=== PATIENT | male | born 1940 | race Caucasian/White ===

== ENCOUNTER 2022-09-22 16:21 | Inpatient (IN) | payer MEDICARE ==
[~2022-09-22] VITALS: Ht 174 cm; Wt 61.2 kg
--- NOTE | 2022-09-22 17:10 | NUR ---
BIB SON FOR NOTED, PALOR, COOL CLAMMY SKIN WHILE EATING AT AROUND 1500 HYPERTENSIVE ON TRIAGE
[2022-09-22 18:01] LABS: BASOPHILS % (AUTO) 0.4 % (0.0-2.0); HEMATOCRIT 41 % (39-51); HEMOGLOBIN 13.6 g/dL (13.5-17.5); LYMPHOCYTES # (AUTO) 0.9 K/uL (0.8-4.8); LYMPHOCYTES % (AUTO) 11.3 % (20.0-44.0); MEAN CORPUSCULAR HGB CONC 33 g/dl (31.0-36.0); MEAN CORPUSCULAR VOLUME 94 fL (80-96); MONOCYTES # (AUTO) 0.3 K/uL (0.1-1.30); MONOCYTES % (AUTO) 3.6 % (2.0-12.0); NEUTROPHILS # (AUTO) 6.9 K/uL (1.8-8.9); NEUTROPHILS % (AUTO) 83.7 % (43.0-81.0); PLATELET COUNT (AUTO) 253 K/uL (150-450); RED BLOOD CELL COUNT(AUTO) 4.38 MIL/uL (4.5-6.0); WHITE BLOOD COUNT (AUTO) 8.2 K/uL (4.3-11.0)
[2022-09-22 18:24] LABS: CALCIUM, SERUM 8.7 mg/dL (8.5-10.1); CARBON DIOXIDE 26 mmol/L (21-32); CHLORIDE 105 mmol/L (98-107); CREATININE 1.9 mg/dL (0.6-1.3); GLUCOSE 116 mg/dL (74-106); POTASSIUM 3.9 mmol/L (3.5-5.1); SODIUM SERUM 140 mmol/L (136-145); UREA NITROGEN, BLOOD 30 mg/dL (7-18)
[2022-09-22 18:39] LABS: ALANINE AMINOTRANSFERASE 18 U/L (12-78); ALBUMIN 3.7 g/dL (3.4-5.0); ALKALINE PHOSPHATASE 148 U/L (46-116); ASPARTATE AMINOTRANSFERASE 26 U/L (15-37); BILIRUBIN,DIRECT 0.1 mg/dL (0.0-0.2); BILIRUBIN,TOTAL 0.4 mg/dL (0.2-1.0); TOTAL PROTEIN, SERUM 7.2 g/dL (6.4-8.2)
[2022-09-22] MEDS ORDERED: ACETAMINOPHEN 325 MG TABLET ONE (18:47)
[2022-09-22] MEDS ORDERED: ASPIRIN 325 MG TABLET ONE (18:49)
--- NOTE | 2022-09-22 18:49 | NUR ---
covid swab taken
[2022-09-22] MEDS ORDERED: ASPIRIN 325 MG TABLET PO ONE (19:00)
[2022-09-22] MEDS ORDERED: ENOXAPARIN SODIUM 40 MG/0.4 ML DISP.SYRIN SQ ONE (19:21)
[2022-09-22] MEDS ORDERED: LABETALOL HCL (100MG) 100 MG TABLET PO ONE (19:30)
[2022-09-22] MEDS ORDERED: ENOXAPARIN SODIUM 60 MG/0.6 ML DISP.SYRIN SQ ONE (19:30)
[2022-09-22] MEDS ORDERED: ACETAMINOPHEN 325 MG TABLET PO PRN (20:30)
[2022-09-22] MEDS ORDERED: MAG HYDROX/AL HYDROX/SIMETH 30 ML UDC PO PRN (20:30)
[2022-09-22] MEDS ORDERED: LABETALOL 20 MG/4 ML VIAL IV PRN (20:30)
[2022-09-22] MEDS ORDERED: MAGNESIUM HYDROXIDE 30 ML UDC PO PRN (20:30)
[2022-09-22] MEDS ORDERED: Z GUARD REMEDY 4 OZ OINT TP PRN (20:30)
[2022-09-22] MEDS ORDERED: ONDANSETRON HCL/PF 4 MG/2 ML VIAL IVP PRN (20:30)
--- NOTE | 2022-09-22 20:51 | NUR ---
REPORT GIVEN TO KADY Leiva RN FOR ELIDA
--- NOTE | 2022-09-22 21:30 | NUR ---
PT TRANSFERRED TO 3W 323-1 VIA ACLS PROTOCOL IN STABLE CONDITION. VSS. ALL BELONGINGS WITH PT.
--- NOTE | 2022-09-22 21:40 | NUR ---
sane rn notes Received Pt from ER nurse. Pt is alert and orientedX4. On room air. No SOB. No S/S of distress noted. Pt denies any pain at this time. Tele monitor showed SR. IV site at LAC# 20 is clean, intact and flushes well. Skis assesment is done and performed. Skin pictures are taken. Pt's belonging was given to Pt's son and signed by Pt. Reorient Pt to the room and the use of call light. Pt verbalize understanding. Safety precautions is maintained. Bed at low position, brakes locked, side rails upX2, urinal at the bedside, hob elevated, bed alarm is on and call light is within reach. Will continue to monitor.
[2022-09-22 22:00] VITALS: BP 200/94
[2022-09-22] MEDS: hydrALAZINE HCL IV 20 MG VIAL IV PRN (22:33)
--- NOTE | 2022-09-22 22:33 | NUR ---
RN notes Pt's BP 200/94, HR 65. administered hydralazine 10mg/iv/prn as ordered for high BP. No S/S of distress noted. Pt denies any discomfort. Will continue to monitor.
[2022-09-22 23:30] VITALS: BP 154/77
--- NOTE | 2022-09-22 23:30 | NUR ---
RN notes Pt's BP 154/77, HR 71. tele monitor showed SR. Will continue to monitor.
--- NOTE | 2022-09-23 00:26 | NUR ---
RN notes Called radiology two times for US kidney. No one answered the phone. Will try again.
--- NOTE | 2022-09-23 02:24 | NUR ---
RN notes Received a phone call from Donn narvaez. Critical lab for troponin I [phone]. Informed and notified Dr. Valdez. Awaiting for response.
--- NOTE | 2022-09-23 02:40 | NUR ---
RN notes Received ordered from Dr. Valdez for heparin gtts non - ACS. also informed MD that Pt's BP midnight was 154/77 HR 71. Pt denies any chest pain or discomfort. Order carried out. Charge nurse is aware and informed.
--- NOTE | 2022-09-23 02:41 | NUR ---
RN notes ordered to DC lovenox. Ordered carried out
[2022-09-23 03:11] LABS: BILIRUBIN,URINE NEGATIVE (NEGATIVE); COLOR,URINE YELLOW (YELLOW); LEUKOCYTE ESTERASE ,URINE NEGATIVE (NEGATIVE); NITRITE, URINE NEGATIVE (NEGATIVE); PROTEIN,URINE 1+ mg/dl (NEGATIVE); UGLUCOSE NEGATIVE (NEGATIVE); UROBILINOGEN,URINE 0.2 EU/dL (0.2)
[2022-09-23 03:15] LABS: BACTERIA,URINE None seen /HPF (None Seen); SQUAMOUS EPITHELIAL CELL,UR Few /HPF (None Seen); WBC,URINE 0-2 /HPF (0-3)
--- NOTE | 2022-09-23 03:18 | NUR ---
RN notes Send to [facility] regarding heparin dosing orders non ACS. called house supDariusz Hair for heparin ordered. Charge nurse is aware and informed.
--- NOTE | 2022-09-23 03:43 | NUR ---
Rn notes Received a phone call from [facility] Brenda. Brenda informed to verify with MD regarding heparin drips. Pt received therapeutic lovenox 60 mg in ER. Pharmacy informed to start heparin drips 9-12 hours after lovenox and regarding the bolus. Dr. Valdez is aware and informed. MD ordered to DC heparin gtts and keep Pt on therapeutic lovenox/BID. order carried out. charge nurse is aware and informed.
[2022-09-23 04:00] VITALS: BP 146/59
--- NOTE | 2022-09-23 04:01 | NUR ---
RN notes Called [facility] and spoke with Brenda. Informed Brenda that Dr. Valdez ordered to DC heparin and continue to therapeutic lovenox. Charge nurse is aware and informed.
[2022-09-23] MEDS ORDERED: HEPARIN INFUSION/D5W 500 ML IV PRN (04:30)
[2022-09-23 06:02] LABS: BASOPHILS % (AUTO) 0.4 % (0.0-2.0); EOSINOPHILS % (AUTO) 2.6 % (0.0-6.0); HEMATOCRIT 38 % (39-51); HEMOGLOBIN 12.8 g/dL (13.5-17.5); LYMPHOCYTES # (AUTO) 1.7 K/uL (0.8-4.8); LYMPHOCYTES % (AUTO) 24.6 % (20.0-44.0); MEAN CORPUSCULAR HGB CONC 34 g/dl (31.0-36.0); MEAN CORPUSCULAR VOLUME 94 fL (80-96); MONOCYTES # (AUTO) 0.4 K/uL (0.1-1.30); MONOCYTES % (AUTO) 5.7 % (2.0-12.0); NEUTROPHILS # (AUTO) 4.6 K/uL (1.8-8.9); NEUTROPHILS % (AUTO) 66.7 % (43.0-81.0); PLATELET COUNT (AUTO) 241 K/uL (150-450); RED BLOOD CELL COUNT(AUTO) 4.08 MIL/uL (4.5-6.0); WHITE BLOOD COUNT (AUTO) 6.8 K/uL (4.3-11.0)
[2022-09-23 06:21] LABS: CALCIUM, SERUM 8.8 mg/dL (8.5-10.1); CARBON DIOXIDE 24 mmol/L (21-32); CHLORIDE 107 mmol/L (98-107); CREATININE 1.6 mg/dL (0.6-1.3); GLUCOSE 108 mg/dL (74-106); MAGNESIUM 2.3 mg/dL (1.8-2.4); PHOSPHORUS 3.1 mg/dL (2.5-4.9); POTASSIUM 3.6 mmol/L (3.5-5.1); SODIUM SERUM 141 mmol/L (136-145); UREA NITROGEN, BLOOD 28 mg/dL (7-18)
--- NOTE | 2022-09-23 06:35 | NUR ---
RN closing notes Pt is resting in bed comfortably. Pt is alert and orientedX4. On room air. No SOB. No S/S of distress noted. VS is stable. afebrile. Tele monitor showed SR with bigeminy HR at 71. IV site at LAC# 20 is clean, intact and SL. Kept Pt clean, dry and comfortable. Safety precautions is maintained. Bed at low position, brakes locked, side rails upX2, urinal at the bedside, hob elevated, bed alarm is on and call light is within reach. Will endorse to am nurse for ELIDA.
--- NOTE | 2022-09-23 06:46 | NUR ---
RN notes Called lab to draw troponin.
--- NOTE | 2022-09-23 07:00 | NUR ---
CREDIT OFFICE MANAGER OPENING NOTES Received patient in bed alert, awake and oriented. A/O x 4. Patient on room air, no signs of respiratory distress. IV site at LAC #20 in saline lock, patent and intact. Safety measures given with bed on low position and locked. Side rails up x2. Call light within reach at all times. Will continue with the plan of care.
[2022-09-23 08:00] VITALS: BP 164/82
[2022-09-23] MEDS: ASPIRIN 81 MG TAB.CHEW PO SCH (08:19)
--- NOTE | 2022-09-23 08:22 | NUR ---
SISAL PICKER/MED RECON PATIENT AOX3. ABLE TO MAKE NEEDS KNOWN. PATIENT REPORTED NO HOME MEDICATION. REPORTED TAKING NORVASC 10MG 1 TAB DAILY 5-[address] JEAN MADE AWARE WITH NO NEW ORDER.
--- NOTE | 2022-09-23 08:40 | NUR ---
SHELL CORE AND MOLDING SUPERVISOR NOTE SEEN BY DR. JEAN
[2022-09-23 09:31] LABS: THYROID STIMULATING HORMONE 3.596 uIU/mL (0.358-3.74)
[2022-09-23] MEDS: ATORVASTATIN 10 MG TABLET PO SCH (09:31)
[2022-09-23 12:00] VITALS: BP 171/86
[2022-09-23 16:00] VITALS: BP 170/78
[2022-09-23] MEDS: IV NS 0.9% 1,000 ML IV PRN ×2 (18:09→18:29)
[2022-09-23] MEDS: AMLODIPINE BESYLATE 10 MG TABLET PO SCH (18:09)
[2022-09-23] MEDS: ENOXAPARIN SODIUM 60 MG/0.6 ML DISP.SYRIN SQ SCH (18:10)
--- NOTE | 2022-09-23 19:10 | NUR ---
RN OPENING NOTES; Received PT in bed AA/O x 4.able to make needs known,julia well on rm air,No sign sob/distress noted,No complain of pain/discomfort at this time,IV site at LAC #20 in saline lock, patent and intact. Safety measures given with bed on low position and locked. Side rails up x2. Call light within reach at all times. Will continue to monitor.
--- NOTE | 2022-09-23 19:10 | NUR ---
ABDOUL RN OPENING NOTES Received PT in bed AA/O x 4.able to make needs known,julia well on rm air,No sign sob/distress noted,No complain of pain/discomfort at this time,IV site at LAC #20 in saline lock, patent and intact. Safety measures given with bed on low position and locked. Side rails up x2. Call light within reach at all times. Will continue to monitor. Addendum: 09/23/22 at 1950 by CAROLYNE FISHER RN wrong entry
--- NOTE | 2022-09-23 19:20 | NUR ---
TRAIN ATTENDANT CLOSING NOTES Patient in bed alert, awake and oriented. A/O x 4. Patient on room air, no signs of respiratory distress. IV site at LAC #20 NS running 100ml/hr, infusing well. On telemetry, SR 80 bigeminy and trigeminy with PVC. Safety measures given with bed on low position and locked. Side rails up x2. Call light within reach at all times. Will endorse to the next shift for the continuity of care.
[2022-09-23 20:00] VITALS: BP 189/87
[2022-09-24] MEDS: IV NS 0.9% 1,000 ML IV PRN ×2 (05:22→18:29)
[2022-09-24 06:00] LABS: BASOPHILS % (AUTO) 0.5 % (0.0-2.0); EOSINOPHILS % (AUTO) 4.7 % (0.0-6.0); HEMATOCRIT 37 % (39-51); HEMOGLOBIN 12.5 g/dL (13.5-17.5); LYMPHOCYTES # (AUTO) 1.9 K/uL (0.8-4.8); LYMPHOCYTES % (AUTO) 31.4 % (20.0-44.0); MEAN CORPUSCULAR HGB CONC 34 g/dl (31.0-36.0); MEAN CORPUSCULAR VOLUME 93 fL (80-96); MONOCYTES # (AUTO) 0.3 K/uL (0.1-1.30); MONOCYTES % (AUTO) 5.5 % (2.0-12.0); NEUTROPHILS # (AUTO) 3.4 K/uL (1.8-8.9); NEUTROPHILS % (AUTO) 57.9 % (43.0-81.0); PLATELET COUNT (AUTO) 226 K/uL (150-450); RED BLOOD CELL COUNT(AUTO) 3.97 MIL/uL (4.5-6.0); WHITE BLOOD COUNT (AUTO) 5.9 K/uL (4.3-11.0)
--- NOTE | 2022-09-24 06:17 | NUR ---
RN CLOSING NOTES; PT in bed AA/O x 4.able to make needs known,julia well on rm air,No sign sob/distress noted,No complained of pain/discomfort during shift,due meds given as order,all needs attended,IV site at [facility] #20 running NS 100ml/hr. Safety measures given with bed on low position and locked. Side rails up x2. Call light within reach at all times. Will endorsed to next shift.
[2022-09-24 06:19] LABS: ALANINE AMINOTRANSFERASE 15 U/L (12-78); ALKALINE PHOSPHATASE 121 U/L (46-116); ASPARTATE AMINOTRANSFERASE 25 U/L (15-37); BILIRUBIN,TOTAL 0.6 mg/dL (0.2-1.0); CALCIUM, SERUM 8.1 mg/dL (8.5-10.1); CARBON DIOXIDE 25 mmol/L (21-32); CHLORIDE 107 mmol/L (98-107); CREATININE 1.7 mg/dL (0.6-1.3); GLUCOSE 100 mg/dL (74-106); MAGNESIUM 2.1 mg/dL (1.8-2.4); PHOSPHORUS 3.2 mg/dL (2.5-4.9); POTASSIUM 3.4 mmol/L (3.5-5.1); SODIUM SERUM 140 mmol/L (136-145); TOTAL PROTEIN, SERUM 6.1 g/dL (6.4-8.2); UREA NITROGEN, BLOOD 20 mg/dL (7-18)
--- NOTE | 2022-09-24 07:23 | NUR ---
RN OPENING NOTE RECEIVED PATIENT IN BED, AWAKE, A/O X4, VERBALLY RESPONSIVE. NO SIGNS OF ACUTE DISTRESS NOTED. NO C/O PAIN OR DISCOMFORT AT THIS TIME. STABLE ON ROOM AIR. NOTED WITH IV ACCESS ON LEFT AC #20 G, INTACT AND PATENT WITH NS @ 100ML/HR RUNNING. ON TELE MONITORING SHOWING SINUS RHYTHM, HR @77. SAFETY MEASURE IN PLACE.ED IN LOWEST AND LOCKED POSITION, SIDE RAILS UP X2, CALL LIGHT AND TABLE PLACED WITHIN EASY REACH. WILL CONTINUE TO MONITOR PATIENT.
[2022-09-24 08:00] VITALS: BP 186/86
[2022-09-24] MEDS: hydrALAZINE HCL IV 20 MG VIAL IV PRN (08:16)
[2022-09-24] MEDS: ATORVASTATIN 10 MG TABLET PO SCH (08:16)
[2022-09-24] MEDS: ASPIRIN 81 MG TAB.CHEW PO SCH (08:16)
[2022-09-24] MEDS: AMLODIPINE BESYLATE 10 MG TABLET PO SCH (08:16)
[2022-09-24] MEDS ORDERED: POTASSIUM CHLORIDE 10 MEQ TABLET.SA PO ONE (09:00)
--- NOTE | 2022-09-24 09:21 | NUR ---
WOUND CARE CONSULT: PT PRESENTS WITH LONG, THICKENED, CURLING TOENAILS, PRESENT ON ADMISSION. DR MCLEAN CALLED FOR DPM CONSULT. IN AGREEMENT WITH PLAN OF CARE.
[2022-09-24] MEDS: NITROGLYCERIN 30 GM TUBE TP SCH ×2 (11:17→21:24)
[2022-09-24 12:00] VITALS: BP 157/82
[2022-09-24 16:00] VITALS: BP 159/88
[2022-09-24] MEDS: ISOSORBIDE DINITRATE (20MG) 20 MG TABLET PO SCH (16:47)
[2022-09-24] MEDS: ENOXAPARIN SODIUM 60 MG/0.6 ML DISP.SYRIN SQ SCH (18:29)
--- NOTE | 2022-09-24 18:56 | NUR ---
RN CLOSING NOTE PATIENT IN BED, AWAKE, A/O X4, VERBALLY RESPONSIVE. NO SIGNS OF ACUTE DISTRESS NOTED. DENIES ANY PAIN OR DISCOMFORT AT THIS TIME. REMAINS STABLE ON ROOM AIR. WITH IV ACCESS ON LEFT AC #20 G, INTACT AND PATENT WITH NS @ 100ML/HR RUNNING. CONTINUE ON TELE MONITORING SHOWING SINUS RHYTHM, HR @92. ALL DUE MEDS GIVEN, TAKEN WELL. SAFETY MEASURE MAINTAINED. BED IN LOWEST AND LOCKED POSITION, SIDE RAILS UP X2, CALL LIGHT AND TABLE PLACED WITHIN EASY REACH. WILL ENDORSE TO NEXT SHIFT FOR CONTINUITY OF CARE.
--- NOTE | 2022-09-24 19:30 | NUR ---
RN OPENING NOTES RECEIVED PT IN BED, ON PHONE WITH FAMILY. AOx4, ABLE TO MAKE NEEDS KNOWN. ON RA AND TOLERATING WELL. NO SOB NOTED. NO S/SX OF RESPIRATORY DISTRESS NOTED. TELE MONITOR DETECTS SR WITH RATE OF 90. IV ACCESS IN LAC #20G RUNNING NS @ 100 ML/HR. SAFETY PRECAUTIONS IN PLACE: BED IN LOWEST, LOCKED POSITION, SIDERAILS UPx2 AND BRAKES ON. TABLE AND CALL LIGHT WITHIN REACH. ALL NEEDS MET. PT KEPT CLEAN AND DRY.
[2022-09-24 20:15] VITALS: BP 153/88
[2022-09-24 23:45] VITALS: BP 137/77
[2022-09-25 04:00] VITALS: BP 158/76
[2022-09-25] MEDS: IV NS 0.9% 1,000 ML IV PRN ×2 (04:12→14:30)
[2022-09-25 05:30] VITALS: BP 158/76
[2022-09-25 06:30] LABS: BASOPHILS % (AUTO) 0.3 % (0.0-2.0); EOSINOPHILS % (AUTO) 2.6 % (0.0-6.0); HEMATOCRIT 35 % (39-51); HEMOGLOBIN 11.7 g/dL (13.5-17.5); LYMPHOCYTES # (AUTO) 1.7 K/uL (0.8-4.8); LYMPHOCYTES % (AUTO) 22.6 % (20.0-44.0); MEAN CORPUSCULAR HGB CONC 34 g/dl (31.0-36.0); MEAN CORPUSCULAR VOLUME 94 fL (80-96); MONOCYTES # (AUTO) 0.5 K/uL (0.1-1.30); NEUTROPHILS # (AUTO) 5.2 K/uL (1.8-8.9); NEUTROPHILS % (AUTO) 68.5 % (43.0-81.0); PLATELET COUNT (AUTO) 223 K/uL (150-450); RED BLOOD CELL COUNT(AUTO) 3.73 MIL/uL (4.5-6.0); WHITE BLOOD COUNT (AUTO) 7.6 K/uL (4.3-11.0)
--- NOTE | 2022-09-25 07:15 | NUR ---
ELECTRIC MULE OPERATOR OPENING NOTES RECEIVED PT IN BED, AWAKE. AOx4, ABLE TO MAKE NEEDS KNOWN. ON RA AND TOLERATING WELL. NO SOB NOTED. NO S/SX OF RESPIRATORY DISTRESS NOTED. ON TELE MONITOR DETECTS SR WITH OCCASIONAL PVC WITH RATE OF 80'S. IV ACCESS IN LAC #20G WITH NS @ 100 ML/HR, INFUSING WELL. SAFETY PRECAUTIONS IN PLACE: BED IN LOWEST, LOCKED POSITION, SIDERAILS UPx2 AND BRAKES ON. TABLE AND CALL LIGHT WITHIN REACH. WILL CONTINUE WITH PLAN OF CARE.
[2022-09-25 07:18] LABS: ALANINE AMINOTRANSFERASE 10 U/L (12-78); ALBUMIN 2.8 g/dL (3.4-5.0); ALKALINE PHOSPHATASE 113 U/L (46-116); ASPARTATE AMINOTRANSFERASE 20 U/L (15-37); BILIRUBIN,TOTAL 0.7 mg/dL (0.2-1.0); CALCIUM, SERUM 8.4 mg/dL (8.5-10.1); CARBON DIOXIDE 21 mmol/L (21-32); CHLORIDE 108 mmol/L (98-107); CREATININE 1.5 mg/dL (0.6-1.3); GLUCOSE 93 mg/dL (74-106); PHOSPHORUS 3.2 mg/dL (2.5-4.9); POTASSIUM 3.2 mmol/L (3.5-5.1); SODIUM SERUM 138 mmol/L (136-145); TOTAL PROTEIN, SERUM 5.8 g/dL (6.4-8.2); UREA NITROGEN, BLOOD 18 mg/dL (7-18)
--- NOTE | 2022-09-25 07:24 | NUR ---
RN CLOSING NOTES PT IN BED, ASLEEP, AWAKENS TO VERBAL STIMULI. AOx4, ABLE TO MAKE NEEDS KNOWN. ON RA AND TOLERATING WELL. NO SOB NOTED. NO S/SX OF RESPIRATORY DISTRESS NOTED. TELE MONITOR DETECTS SR WITH RATE OF 90. IV ACCESS IN LAC #20G RUNNING NS @ 100 ML/HR. ALL ORDERS CARRIED OUT. ALL NEEDS MET. PT KEPT CLEAN AND DRY. SAFETY PRECAUTIONS IN PLACE: BED IN LOWEST, LOCKED POSITION, SIDERAILS UPx2 AND BRAKES ON. TABLE AND CALL LIGHT WITHIN REACH. ALL NEEDS MET. WILL ENDORSE TO ONCOMING SHIFT FOR ELIDA.
[2022-09-25 08:00] VITALS: BP 162/91
--- NOTE | 2022-09-25 08:16 | NUR ---
OPTICAL INSTRUMENT SPECIALIST NOTE SEEN BY DR. JEAN
[2022-09-25] MEDS: ASPIRIN 81 MG TAB.CHEW PO SCH (08:53)
[2022-09-25] MEDS: ISOSORBIDE DINITRATE (20MG) 20 MG TABLET PO SCH ×2 (08:53→16:44)
[2022-09-25] MEDS: AMLODIPINE BESYLATE 10 MG TABLET PO SCH (08:54)
[2022-09-25] MEDS: hydrALAZINE HCL 50 MG TABLET PO SCH ×3 (08:54→16:44)
[2022-09-25] MEDS: POTASSIUM CHLORIDE 20 MEQ TAB.PRT.SR PO SCH ×3 (08:54→10:58)
--- NOTE | 2022-09-25 09:10 | NUR ---
NEWSPAPER STUFFER NOTE SEEN BY DR. CROOKS
[2022-09-25] MEDS: ATORVASTATIN 40 MG TABLET PO SCH (10:58)
[2022-09-25 11:55] VITALS: BP 144/74
[2022-09-25 16:00] VITALS: BP 137/63
--- NOTE | 2022-09-25 18:52 | NUR ---
ELECTRONIC PREPRESS SYSTEM OPERATOR CLOSING NOTE PATIENT IN BED, AWAKE AND RESTING. ALERT AND ORIENTED X 4; ON ROOM AIR BREATHING EVENLY AND NO RESPIRATORY DISTRESS NOTED; WITH IV ACCESS ON LAC G20, PATENT, INTACT AND RUNNING PNSS 1L AT 100 ML/HR; ON TELE MONITOR CURRENTLY READING SINUS RHYTHM WITH PVCs AT 88 BPM; ADMINISTERED MEDICATIONS PRESCRIBED; PATIENT'S NEEDS ATTENDED; SAFETY PRECAUTIONS IN PLACED, BED IN LOW POSITION, LOCKED, SIDE RAILS UP X 2, CALL LIGHT WITHIN REACH; WILL ENDORSE TO PROGRAM MANAGEMENT ANALYST NURSE FOR CONTINUITY OF CARE
--- NOTE | 2022-09-25 19:30 | NUR ---
TELE SITE RELIABILITY ENGINEER INITIAL NOTES RECEIVED REPORT FROM AM NURSE AND CHECKED THE PATIENT, SEEN SITTING ON HIS BED WATCHING TV AT THIS TIME, NOT IN ANY DISCOMFORT OR ANY DISTRESS NOTED. HE'S ON IVF OF NS AT 100ML/HR INFUSING ON HIS LEFT AC, PT ALSO ON TELE SR WITH PVC'S PER MONITOR. RE-ORIENT WHERE HE AT AND HOW TO USED THE CALL LIGHT SYSTEM AND AT THE SAME TIME ENCOURAGE HIM TO USED IT IF HE NEEDS SOME HELP OR NEEDS ASSISTANCE. BED IN LOW AND LOCK IN POSITION WITH SIDE RAILS X2 UP AND BED ALARM SET FOR PT SAFETY. KEPT HIM WARM AND COMFORTABLE AT ALL TIMES . PLACE CALL LIGHT AT REACH. WILL CONTINUE MONITORING.
[2022-09-25 20:00] VITALS: BP 145/66
[2022-09-26] VITALS: BP 149/63
--- NOTE | 2022-09-26 | NUR ---
tele scrap preparer notes checked pt he's sleeping comfortably in bed with IVF of NS at 100ml/hr infusing left AC ,patent and intact. He also on tele SR heart rate 97 per monitor. Vital signs stable . kept him warm and comfortable at all times. will continue monitoring. place call light at reach.
[2022-09-26] MEDS: IV NS 0.9% 1,000 ML IV PRN ×3 (00:46→18:36)
[2022-09-26 04:00] VITALS: BP 158/66
--- NOTE | 2022-09-26 07:08 | NUR ---
tele attending ambulatory care closing notes pt seen sitting in bed awake and alert watching TV at this time. he still with IVF of NS at 100ml/hr infusing no redness noted. Denies any pain or any discomfort. He's on tele SR per monitor. Stable tigist the night. all needs met . kept him warm and comfortable at all times. Bed in low and lock in position with side rails X2 up . place call light at reach.
--- NOTE | 2022-09-26 07:53 | NUR ---
SYNTHETIC FILAMENT SPINNER OPENING NOTE RECEIVED PATIENT FROM HIM SPECIALISTS NURSE; PATIENT IS ALERT AND ORIENTED X 4; ON ROOM AIR BREATHING EVENLY AND NO RESPIRATORY DISTRESS NOTED; WITH IV ACCESS ON LAC G20 RUNNING WITH PNSS IL AT 100 ML/HR; HOOKED TO TELE MONITOR CURRENTLY READING SINUS RHYTHM WITH PVCs; SAFETY PRECAUTIONS IN PLACED, BED IN LOW POSITION, LOCKED, SIDE RAILS X 2, CALL LIGHT WITHIN REACH; WILL CONTINUE TO MONITOR THROUGHOUT SHIFT
[2022-09-26 08:00] VITALS: BP 165/75
[2022-09-26] MEDS: AMLODIPINE BESYLATE 10 MG TABLET PO SCH (08:09)
[2022-09-26] MEDS: hydrALAZINE HCL 50 MG TABLET PO SCH ×3 (08:09→17:00)
[2022-09-26] MEDS: ASPIRIN 81 MG TAB.CHEW PO SCH (08:09)
[2022-09-26] MEDS: ATORVASTATIN 40 MG TABLET PO SCH (08:10)
[2022-09-26] MEDS: ISOSORBIDE DINITRATE (20MG) 20 MG TABLET PO SCH ×2 (08:10→17:27)
[2022-09-26 08:50] LABS: BASOPHILS % (AUTO) 0.3 % (0.0-2.0); EOSINOPHILS % (AUTO) 2.2 % (0.0-6.0); HEMATOCRIT 32 % (39-51); HEMOGLOBIN 10.9 g/dL (13.5-17.5); LYMPHOCYTES # (AUTO) 1.4 K/uL (0.8-4.8); LYMPHOCYTES % (AUTO) 20.6 % (20.0-44.0); MEAN CORPUSCULAR HGB CONC 34 g/dl (31.0-36.0); MEAN CORPUSCULAR VOLUME 94 fL (80-96); MONOCYTES # (AUTO) 0.4 K/uL (0.1-1.30); MONOCYTES % (AUTO) 6.6 % (2.0-12.0); NEUTROPHILS # (AUTO) 4.8 K/uL (1.8-8.9); NEUTROPHILS % (AUTO) 70.3 % (43.0-81.0); PLATELET COUNT (AUTO) 223 K/uL (150-450); RED BLOOD CELL COUNT(AUTO) 3.43 MIL/uL (4.5-6.0); WHITE BLOOD COUNT (AUTO) 6.8 K/uL (4.3-11.0)
--- NOTE | 2022-09-26 09:35 | NUR ---
EXTRACTOR PLANT OPERATOR NOTE PATIENT COMPLAINED OF FEELING OFF AND SAID THAT HE HAS A HARD TIME BREATHING, LATER ON HE SAID IT WAS BECAUSE OF SOME STUFFY NOSE. COMFORT MEASURES PROVIDED. PATIENT WITH BP OF 90/50 WITH HR AT 90'S. PATIENT PLACED ON MODIFIED [place]. OXYGEN PROVIDED FOR COMFORT. CHECKED TELE MONITOR READING, PATIENT'S HR WAS STARTING TO GO TO 120'S. THEN 130'S T0 140'S. DR. CROOKS NOTIFIED. PATIENT VERBALIZING HIS HEART SEEMS TO BE WORKING EXTRA. NO APPARENT SIGNS OF DISTRESS. PROVIDED WITH CALM AND QUIET ENVIRONMENT.
[2022-09-26 09:46] LABS: ALANINE AMINOTRANSFERASE 17 U/L (12-78); ALBUMIN 2.7 g/dL (3.4-5.0); ALKALINE PHOSPHATASE 107 U/L (46-116); ASPARTATE AMINOTRANSFERASE 24 U/L (15-37); BILIRUBIN,TOTAL 0.6 mg/dL (0.2-1.0); CALCIUM, SERUM 8.3 mg/dL (8.5-10.1); CARBON DIOXIDE 21 mmol/L (21-32); CHLORIDE 109 mmol/L (98-107); CREATININE 1.6 mg/dL (0.6-1.3); GLUCOSE 99 mg/dL (74-106); MAGNESIUM 1.9 mg/dL (1.8-2.4); PHOSPHORUS 3.2 mg/dL (2.5-4.9); POTASSIUM 3.6 mmol/L (3.5-5.1); SODIUM SERUM 138 mmol/L (136-145); TOTAL PROTEIN, SERUM 5.7 g/dL (6.4-8.2); UREA NITROGEN, BLOOD 18 mg/dL (7-18)
--- NOTE | 2022-09-26 10:15 | NUR ---
BEAR KEEPER NOTE PATIENT CONVERTED TO ATRIAL FIBRILLATION NOTED STAT EKG WITH ACUTE CA. DR. JEAN NOTIFIED WITH ORDERS MADE AND CARRIED OUT. ANTICIPATION TRANSFER OF PATIENT. PREPARED PATIENT FOR POSSIBLE TRANSFER. LATEST BP IS 128/65 HR 130'S TO 140'S. NO COMPLAIN OF CHEST PAIN OR ANY DISCOMFORT.
[2022-09-26] MEDS ORDERED: AMIODARONE 450 MG in IV D5W 250 ML IV PRN (10:30)
[2022-09-26] MEDS ORDERED: AMIODARONE 150 MG in IV D5W 100 ML IV ONE (10:30)
--- NOTE | 2022-09-26 10:31 | NUR ---
REPACKER NOTE PATIENT TRANSFERRED TO [facility] ROOM 102 ORDERED AND TRANSPORTED VIA BED WITH ANOTHER NURSE AND FAMILY AT BEDSIDE. PATIENT IN STABLE CONDITION. ENDORSED PATIENT TO RN ROB. ENDORSED ACCORDINGLY.
--- NOTE | 2022-09-26 10:55 | NUR ---
TD RN NOTES RECEIVED PT TRANSFER FROM 3, IN BED, AWAKE. AOx4, ABLE TO MAKE NEEDS KNOWN. ACCOMPANIED BY AND SON, ON RA AND TOLERATING WELL. ROOM AIR, O2 SAT 98%.NO SOB NOTED. NO S/SX OF RESPIRATORY DISTRESS NOTED. RESPIRATION UNLABORED. AFIB UNCONTROLLED, HR 126, IV ACCESS IN LAC #20G WITH NS @ 100 ML/HR, INFUSING WELL. SITE CLEAR. SAFETY PRECAUTIONS IN PLACE: BED IN LOWEST, LOCKED POSITION, SIDERAILS UPx2. CALL LIGHT WITHIN REACH. POC DISCUSSED. WILL CONT TO MONITOR.
--- NOTE | 2022-09-26 10:55 | NUR ---
RN NOTES DR. CROOKS AND DR. JEAN AWARE.
[2022-09-26] MEDS ORDERED: APIXABAN 2.5 MG TABLET PO SCH (11:00)
[2022-09-26] MEDS: AMIODARONE 450 MG in IV D5W 241 ML IV PRN ×2 (11:54→18:44)
--- NOTE | 2022-09-26 15:04 | NUR ---
RN note - cancelled investigation today Received a call from Dr. Perkins about cancellation of the test. He ordered FMN for patient and have the cardiac cath scheduled at 0700 tomorrow.
[2022-09-26] MEDS ORDERED: HEPARIN SODIUM, PORCINE 1000 UNIT/1 ML VIAL IV ONE (17:30)
[2022-09-26] MEDS ORDERED: HEPARIN INFUSION/D5W 500 ML IV PRN ×2 (18:00→20:00)
--- NOTE | 2022-09-26 19:24 | NUR ---
RN NOTES ALL NEEDS MET. PATIENT RESTING FOR NOW. AMIODARONE RUNNING AT 0.5 MG/MIN [16.66 ML/HR], INTACT RIGHT AC NS 100 ML/HR LEFT AC FOR CARDIAC CATH/ANGIOGRAM TOMORROW AT 0700. CONSENT SIGNED NPO POST MIDNIGHT. FOR HEPARIN DRIP TONIGHT. APTT POST 6 HOURS ENDORSED TO NEXT SHIFT FOR ELIDA.
[2022-09-26] MEDS ORDERED: HEPARIN SODIUM, PORCINE 5000 UNITS/1 ML VIAL IV ONE (20:00)
--- NOTE | 2022-09-26 20:00 | NUR ---
[facility] RN NOTE RECEIVED PT IN BED AWAKE, A/O X 4, NO SOB, NO DISTRESS OR DISCOMFORT NOTED. DENIES PAIN. IVF NS 100 ML/HR INFUSING AT LT AC, AND AMIO DRIP 0.5 MG/KG/HR INFUSING ON RAC ALSO STARTED HEPARIN MED ORDERED. BOLUS 4000 U IVP GIVEN AND HEPARIN DRIP STARTED AT 855 U/HR PER PROTOCOL. ON TELE SR 61. SIDE RAILS UP X 2 AND CALL LIGHT WITHIN REACH. VSS. CONTINUE TO MONITOR HIM. CALLED DR BRADY REGARDING HEPARIN INFUSION STOP TIME IN AM. PER MD CALL DR JEAN. INFORMED DR JEAN WAITING FOR HIM REPLY.
--- NOTE | 2022-09-26 20:28 | NUR ---
[facility] RN NOTE DR JEAN CALLED BACK INFORMED HIM VS BP 121/58 HR 61 SR. GAVE NEW ORDER TO STOP AMIO DRIP NOW AND ALSO STOP HEPARIN DRIP AT 0400 09/27/2022.
--- NOTE | 2022-09-27 03:28 | NUR ---
[facility] RN NOTE PTT RESULT CAME 67.8 PER PROTOCOL NO CHANGE IN HEPARIN DRIP, CONTINUE AT 855 UNITS/HR. AND WILL STOP IT AT 0400 PER MD ORDERS.
--- NOTE | 2022-09-27 04:00 | NUR ---
[facility] RN NOTE HEPARIN DRIP STOPPED ORDERED BY DR JEAN. PT ASLEEP, EASILY AROUSABLE. NO DISTRESS OR DISCOMFORT NOTED. CONTINUE TO MONITOR HIM.
[2022-09-27] MEDS: IV NS 0.9% 1,000 ML IV PRN (04:07)
--- NOTE | 2022-09-27 06:00 | NUR ---
[facility] RN NOTE PT SIGN THE CONSENT FOR AM PROCEDURE. AND IN NO DISTRESS.
[2022-09-27 06:20] LABS: BASOPHILS % (AUTO) 0.3 % (0.0-2.0); EOSINOPHILS % (AUTO) 3.7 % (0.0-6.0); HEMATOCRIT 32 % (39-51); HEMOGLOBIN 10.6 g/dL (13.5-17.5); LYMPHOCYTES # (AUTO) 1.2 K/uL (0.8-4.8); MEAN CORPUSCULAR HGB CONC 33 g/dl (31.0-36.0); MEAN CORPUSCULAR VOLUME 95 fL (80-96); MONOCYTES # (AUTO) 0.4 K/uL (0.1-1.30); MONOCYTES % (AUTO) 6.2 % (2.0-12.0); NEUTROPHILS # (AUTO) 4.9 K/uL (1.8-8.9); NEUTROPHILS % (AUTO) 71.8 % (43.0-81.0); PLATELET COUNT (AUTO) 217 K/uL (150-450); RED BLOOD CELL COUNT(AUTO) 3.35 MIL/uL (4.5-6.0); WHITE BLOOD COUNT (AUTO) 6.9 K/uL (4.3-11.0)
--- NOTE | 2022-09-27 06:31 | NUR ---
[facility] RN NOTE PT AWAKE. NO DISTRESS OR DISCOMFORT NOTED. DENIES PAIN . PT IS NPO. IVF NS INFUSING AT 100 ML/HR. SIDE RAIL UP X 2 AND CALL LIGHT WITHIN REACH. WILL ENDORSE TO DAY SHIFT NURSE FOR CONTINUE TO CARE.
[2022-09-27 07:08] LABS: ALANINE AMINOTRANSFERASE 30 U/L (12-78); ALBUMIN 2.6 g/dL (3.4-5.0); ALKALINE PHOSPHATASE 100 U/L (46-116); ASPARTATE AMINOTRANSFERASE 68 U/L (15-37); BILIRUBIN,TOTAL 0.5 mg/dL (0.2-1.0); CALCIUM, SERUM 8.3 mg/dL (8.5-10.1); CARBON DIOXIDE 19 mmol/L (21-32); CHLORIDE 110 mmol/L (98-107); CREATININE 1.7 mg/dL (0.6-1.3); GLUCOSE 106 mg/dL (74-106); PHOSPHORUS 3.7 mg/dL (2.5-4.9); POTASSIUM 3.4 mmol/L (3.5-5.1); SODIUM SERUM 138 mmol/L (136-145); TOTAL PROTEIN, SERUM 5.5 g/dL (6.4-8.2); UREA NITROGEN, BLOOD 20 mg/dL (7-18)
--- NOTE | 2022-09-27 07:15 | NUR ---
RN NOTE PATIENT SITTING IN HIS BED A/O X4 NPO SINCE MIDNIGHT, WAITING TO OR STAFF TO TAKE HIM FOR CARDIAC CATH. PREOP CHECKLIST AND CONSENT ALREADY DONE DURING LEAD QA ANALYST AND PLACED IN THE PATIENT'S CHART. PER LEAD QA ANALYST'S REPORT PATIENT WILL BE TAKEN TO ICU AFTER THE PROCEDURE IN ROOM 255.
[2022-09-27 08:00] VITALS: BP 144/66
--- NOTE | 2022-09-27 08:25 | NUR ---
RN NOTE PATIENT'S PROCEDURE CARDIAC CATH IS DELAYED DUE TO TECHNICAL ISSUE IN CARDIAC DEPARTMENT. THEY SAID PATIENT WILL BE TAKEN BEFORE [address]. [address] JEAN AND ALSO ABOUT PATIENT'S AM [address] JEAN SAID BRAVO TO PO MEDICATION WHILE PATIENT IS NPO.
[2022-09-27] MEDS: ATORVASTATIN 40 MG TABLET PO SCH (08:36)
[2022-09-27] MEDS: ASPIRIN 81 MG TAB.CHEW PO SCH (08:36)
[2022-09-27] MEDS: ISOSORBIDE DINITRATE (20MG) 20 MG TABLET PO SCH ×2 (08:36→17:00)
[2022-09-27] MEDS: hydrALAZINE HCL 50 MG TABLET PO SCH ×3 (08:37→17:00)
[2022-09-27] MEDS: AMLODIPINE BESYLATE 10 MG TABLET PO SCH (08:37)
--- NOTE | 2022-09-27 09:50 | NUR ---
RN NOTE DR. JEAN JUST CAME AND INFORMED THE PATIENT THAT THE ISSUE WITH OUR EQUIPMENT DID NOT RESOLVE AND THEY ARE WORKING ON IT, BUT PATIENT WILL BE TRANSFER TO THE [facility] TO DO THE SAME PROCEDURE CARDUIAC CATH BY THE SAME SURGEON DR. BRADY. PATIENT ACCEPT IT.
[2022-09-27] MEDS ORDERED: POTASSIUM CHLORIDE 20 MEQ TAB.PRT.SR PO ONE (10:00)
--- NOTE | 2022-09-27 11:15 | NUR ---
RN NOTE CALLED [facility] GAVE REPORT TO LOVELY. AND DISCHARGE PAPER ALL GIVEN TO PATIENT ALL CONSENT FORM BELONGINGS FORM SIGNED AND PLACED IN THE CHART. INFORMED PATIENT ABOUT COMING RETURNING BACK TO [facility] OR STAYING IN [facility] IS UP TO THEM
[2022-09-27 12:00] VITALS: BP 122/65
--- NOTE | 2022-09-27 13:43 | NUR ---
RN NOTE PATIENT TRANSFEREE TO [facility] FOR CARDIAC CATH AT 1200 AFTERNOON MEDICATION CAN NOT BE ADMINISTERED AT THIS TIME.
--- NOTE | 2022-09-27 17:00 | NUR ---
RN NOTE PATIENT MEDICATION NON ADMINISTERED BECAUSE PATIENT IS IN [facility] FOR CARDICA CATH SINCE 1230 PM.
--- NOTE | 2022-09-27 18:30 | NUR ---
RN NOTE RECEIVED A REPORT FROM [facility] FROM MILAGROS VALDOVINOS. PATIENT HAD A CARDIAC CATH WITH 1 STENT ON MID RCA. ENTRY PORT WAS FROM THE RIGHT WRIST AND SHE REPORTED NO BLEEDING. PATIENT IS STABLE AND TALKING TO HIS SON MIGUELANGEL SHE SAID. IMGUELANGEL THE SON'S CELL NUMBER IS [id number]. MILAGROS GAVE PATIENT'S LAST VITAL SIGNS BP: 122/65 HR: 96 ROOM AIR OXYGEN 96%. PATIENT WILL BE TRANSFER FROM [facility] AT 0700 AND HE MIGHT GET HERE AROUND 0720 TO 0730. WILL ENDORSE THE PATIENT TO THE CONTROL VALVE TECHNICIAN NURSE FOR ELIDA.
--- NOTE | 2022-09-27 19:45 | NUR ---
1945 Patient back from [facility] via gurney accompanied by family members. Awake, alert and oriented and able to ambulate to bathroom with assistance. Denies chest pain or any discomfort when asked. Connected to monitor car operator. NSR in the 80s. No signs of bleeding from right wrist when checked. Right AC IV access intact and patent. Call light placed within reach and instructed patient to call for assistance. Dr. Berry notified of patient's re admission to unit.
--- NOTE | 2022-09-27 19:50 | NUR ---
RN OPENING NOTE RECEIVED PT FROM [facility] VIA [facility] S/P CARDIAC CATH. PATIENT IS AWAKE, ALERT AND ORIENTED X 4; AMBULATORY WITH ASSIST. PLACED ON O2 INHALATION @ 2 LPM VIA NASAL CANNULA; TOLERATING WELL. NOT IN ANY FORM OF RESPIRATORY OR CARDIAC DISTRESS NOTED. NO C/O ANY PAIN OR DISCOMFORT MADE @ THIS TIME. FAMILY MEMBERS AT BEDSIDE. ABLE TO MAKE NEEDS KNOWN. WITH IV ACCESS ON LEFT AC 20G; PATENT, INTACT AND SALINE LOCKED. SAFETY PRECAUTIONS IMPLEMENTED: CALL LIGHT AND TABLE WITHIN REACH, SIDE RAILS UP X 2, BED IN LOWEST LOCKED POSITION. WILL CONTINUE TO MONITOR
[2022-09-27 20:00] VITALS: BP 139/79
[2022-09-28] VITALS: BP 149/77
[2022-09-28] MEDS: IV NS 0.9% 1,000 ML IV PRN (00:34)
[2022-09-28 04:00] VITALS: BP 155/84
--- NOTE | 2022-09-28 06:40 | NUR ---
RN CLOSING NOTE PT IN BED; AWAKE, A/O X 4; AMBULATORY WITH ASSIST. ON ROOM AIR; TOLERATING WELL. IN NO ACUTE DISTRESS. DENIES ANY PAIN OR DISCOMFORT AT THIS TIME. WITH ONGOING IV FLUIDS ON LEFT HAND 20G; PATENT AND INTACT RUNNING WITH NS 1L REGULATED @ 100 ML/HR; FLUSHES WELL. ANOTHER IV ACCESS ON RIGHT ANTECUBITAL 20G; PATENT, INTACT AND SALINE LOCKED. SAFETY PRECAUTIONS MAINTAINED: CALL LIGHT AND TABLE WITHIN REACH, SIDE RAILS UP X 2, BED IN LOWEST LOCKED POSITION. ENDORSED TO MORNING SHIFT FOR ELIDA.
[2022-09-28 08:00] VITALS: BP 156/82
[2022-09-28] MEDS: AMLODIPINE BESYLATE 10 MG TABLET PO SCH (08:21)
[2022-09-28] MEDS: ASPIRIN 81 MG TAB.CHEW PO SCH (08:21)
[2022-09-28] MEDS: ISOSORBIDE DINITRATE (20MG) 20 MG TABLET PO SCH (08:22)
[2022-09-28] MEDS: hydrALAZINE HCL 50 MG TABLET PO SCH ×2 (08:22→12:11)
[2022-09-28] MEDS: ATORVASTATIN 40 MG TABLET PO SCH (08:22)
[2022-09-28] MEDS ORDERED: AMLO-213 PO (08:53)
[2022-09-28] MEDS ORDERED: METO50TA16 PO (08:53)
[2022-09-28] MEDS ORDERED: ASPI-1169 PO (08:53)
[2022-09-28] MEDS ORDERED: TICA90TA PO (08:53)
[2022-09-28] MEDS ORDERED: ATOR40TA PO (08:54)
[2022-09-28] MEDS ORDERED: METOPROLOL TARTRATE 50 MG TABLET PO SCH (09:00)
[2022-09-28] MEDS ORDERED: TICAGRELOR 90 MG TABLET PO SCH (09:00)
[2022-09-28 09:04] LABS: BASOPHILS % (AUTO) 0.5 % (0.0-2.0); EOSINOPHILS % (AUTO) 3.9 % (0.0-6.0); HEMATOCRIT 37 % (39-51); HEMOGLOBIN 12.2 g/dL (13.5-17.5); LYMPHOCYTES # (AUTO) 1.1 K/uL (0.8-4.8); LYMPHOCYTES % (AUTO) 14.6 % (20.0-44.0); MEAN CORPUSCULAR HGB CONC 33 g/dl (31.0-36.0); MEAN CORPUSCULAR VOLUME 94 fL (80-96); MONOCYTES # (AUTO) 0.5 K/uL (0.1-1.30); MONOCYTES % (AUTO) 6.8 % (2.0-12.0); NEUTROPHILS # (AUTO) 5.5 K/uL (1.8-8.9); NEUTROPHILS % (AUTO) 74.2 % (43.0-81.0); PLATELET COUNT (AUTO) 256 K/uL (150-450); RED BLOOD CELL COUNT(AUTO) 3.92 MIL/uL (4.5-6.0); WHITE BLOOD COUNT (AUTO) 7.4 K/uL (4.3-11.0)
[2022-09-28 09:21] LABS: CALCIUM, SERUM 8.7 mg/dL (8.5-10.1); CARBON DIOXIDE 21 mmol/L (21-32); CHLORIDE 107 mmol/L (98-107); CREATININE 1.5 mg/dL (0.6-1.3); GLUCOSE 107 mg/dL (74-106); POTASSIUM 3.3 mmol/L (3.5-5.1); SODIUM SERUM 137 mmol/L (136-145); UREA NITROGEN, BLOOD 19 mg/dL (7-18)
[2022-09-28 09:26] LABS: ALANINE AMINOTRANSFERASE 52 U/L (12-78); ALBUMIN 2.9 g/dL (3.4-5.0); ALKALINE PHOSPHATASE 119 U/L (46-116); ASPARTATE AMINOTRANSFERASE 70 U/L (15-37); BILIRUBIN,TOTAL 0.6 mg/dL (0.2-1.0); TOTAL PROTEIN, SERUM 6.4 g/dL (6.4-8.2)
[2022-09-28] MEDS: POTASSIUM CHLORIDE 20 MEQ TAB.PRT.SR PO SCH ×2 (10:17→11:41)
[2022-09-28 12:00] VITALS: BP 107/50
[2022-09-28 12:11] VITALS: BP 107/50
--- NOTE | 2022-09-28 14:30 | NUR ---
ROTATIONAL MOULDING OPERATOR NOTES PATIENT DISCHARGED AT 1430. FAMILY SON AND CAME AFTER HIM AND PATIENT WAS TAKEN BY WHEELCHAIR TO THEIR CAR. PATIENT WAS STABLE UPON DISCHARGE. ALERT ORIENTED X4. AMBULATORY. NO ÁLVAREZ CATH, BOTH IV SITE WERE REMOVED FROM HIS RIGHT AND LEFT ARMS. ALL INSTRUCTIONS GIVEN, CONSENT FORM SIGNED, LIST OF THE NEW MEDICATIONS GIVEN THE SON MIGUELANGEL WILL GET THEM FROM THE [facility] INDICATED ON THE DISCHARGE PAPER.
--- NOTE | 2022-09-28 15:18 | NUR ---
RN NOTE PATIENT DISCHARGED AT 1430. I HAD A CALL AT 1515 FROM LAB TROPONIN LEVEL 8163 YESTERDAY 09/27/2021 WAS [id number]. PATIENT DID THE CARDIAC CATH WITH ONE STENT IN [facility] 09/27/2022. DR. JEAN NOTIFIED REGARDING THE TROPONIN LEVEL AND HE SAID OK.
== END 2022-09-28 15:48 | disposition short-term general hospital (02) | DRG 280 ==
LOC: ER 16:21 → TELE 20:42 → TELE1 09-26 10:30 → TELE-TD 09-26 10:46 → MEDSG1 09-28 07:32
PROVIDERS: ADMIT Registered Nurse; ATTEND Internal Medicine
PROC: 0HBRXZZ Excision of Toe Nail, External Approach (ICD-10-PCS; principal; 2022-09-26)
DX: I16.0 Hypertensive urgency (principal); N17.0 Acute kidney failure with tubular necrosis; I21.4 Non-ST elevation (NSTEMI) myocardial infarction; R64 Cachexia; E44.0 Moderate protein-calorie malnutrition; Z68.1 Body mass index [BMI] 19.9 or less, adult; Z20.822 Contact with and (suspected) exposure to COVID-19; Z91.199 Patient's noncompliance with other medical treatment and regimen due to unspecified reason; Z91.14 Patient's other noncompliance with medication regimen; E78.5 Hyperlipidemia, unspecified; N18.9 Chronic kidney disease, unspecified; I48.91 Unspecified atrial fibrillation; L60.3 Nail dystrophy; M79.675 Pain in left toe(s); M79.674 Pain in right toe(s); I25.10 Atherosclerotic heart disease of native coronary artery without angina pectoris; J84.10 Pulmonary fibrosis, unspecified; N28.1 Cyst of kidney, acquired; N40.0 Benign prostatic hyperplasia without lower urinary tract symptoms; I12.9 Hypertensive chronic kidney disease with stage 1 through stage 4 chronic kidney disease, or unspecified chronic kidney disease
CPT/HCPCS: 36415; 71045-TC; 76770-TC; 80048-TC; 80053-TC; 80061-TC; 80076-TC; 81001; 82728-TC; 82962-TC; 83540-TC; 83735-TC; 83880; 84100-TC; 84439-TC; 84443-TC; 84484-TC; 85025-TC; 85610-TC; 85730-TC; 87081-TC; 93307-TC; 97116-TC; 97530-TC; C9803; G0378; J0282; J0360; J1644; J1650; J3490; J7030; J7060

== ENCOUNTER 2022-11-28 10:22 | Outpatient (CLI) | payer MEDICARE ==
[~2022-11-28 10:22] MED LIST: AMLO-213 PO; ASPI-1169 PO; ATOR40TA PO; METO50TA16 PO; TICA90TA PO
== END 2022-11-28 23:59 | disposition home or self-care (01) ==
LOC: WOU 10:22
PROVIDERS: ATTEND Podiatrist Foot & Ankle Surgery
DX: L60.3 Nail dystrophy (principal); L85.3 Xerosis cutis; M79.675 Pain in left toe(s); M79.674 Pain in right toe(s); I10 Essential (primary) hypertension; Z79.82 Long term (current) use of aspirin
CPT/HCPCS: G0463

== ENCOUNTER 2023-02-13 10:38 | Outpatient (CLI) | payer MEDICARE | END 2023-02-13 23:59 | disposition home or self-care (01) | LOC: WOU 10:38 | PROVIDERS: ATTEND Podiatrist Foot & Ankle Surgery | DX: L60.3 Nail dystrophy (principal); L85.3 Xerosis cutis; M79.675 Pain in left toe(s); M79.674 Pain in right toe(s); Z79.82 Long term (current) use of aspirin | CPT/HCPCS: G0463 ==